=== PATIENT | male | born 1955 | race Caucasian/White ===

== ENCOUNTER → 2016-08-17 | Outpatient (CLI) | payer BC, MEDICAID ==
[~2016-08-17] MED LIST: ASPIRIN81 M2 PO; BREO ELLIPTA 21 EACH; INCRUSE ELLI62.5 MCG INH; IPRAT-ALBUT 0.5-3 ML INH; LIDODERM1 EACH TOP; MULTIPLE VITAM1 EAC1 PO
--- NOTE | ~2016-08-17 | PFT ---
[id number] [facility]. [place], [place] [address] [id number] O MR#: [id number] NAME: ROMULO JIMENEZ ROOM: SEX: Dwayne STUDY DATE/TIME: 08/19/2016 : 1955 AGE: 61 STUDY DESCRIPTION: Attending Physician: Damon Jay M.D. Referring Physician: Damon Jay M.D. Primary Care Physician: No Primary Care Physician PULMONARY DIAGNOSTIC REPORT EXAM Pulmonary function test. FINDINGS Spirometry reveals a moderate obstructive defect with an FEV1 of 2.09 L, 54% of predicted. There is no significant response to bronchodilators. Flow volume loop is consistent with an obstructive defect. Lung volumes reveal air trapping. Diffusion capacity is severely reduced. Changes are consistent with emphysema. Dictated by... Prince Sheffield M.D. MARCELINA/janice TD: 08/19/2016 09:47 JOB #: [id number] PULMONARY DIAGNOSTIC REPORT Page 1 of 1
[2016-08-17 10:29] LABS: ARTERIAL BLD GAS O2 SATURATION 97.1 % (90.0-100.0); ARTERIAL BLOOD GAS ALLEN TEST NORMAL; ARTERIAL BLOOD GAS ART SITE LEFT BRACHIAL; ARTERIAL BLOOD GAS CARBOXY HB 0.6 %sat (0.0-9.0); ARTERIAL BLOOD GAS HCO3 27.5 mmol/L; ARTERIAL BLOOD GAS MET HB 0.9 %sat (0.0-2.0); ARTERIAL BLOOD GAS PCO2 41.8 mmHg (35.0-45.0); ARTERIAL BLOOD GAS PO2 82.1 mmHg (80.0-100); ARTERIAL BLOOD GAS pH 7.427 (7.350-7.450); ARTERIAL DRAW? YES
== END | disposition home or self-care (01) ==
LOC: CRC 09:45
PROVIDERS: Surgery
DX: R91.8 Other nonspecific abnormal finding of lung field (principal)
CPT/HCPCS: 36600; 82803; 94060; 94726; 94729

== ENCOUNTER → 2016-08-25 | Day surgery (SDC) | payer BC, MEDICAID ==
--- NOTE | ~2016-08-25 | OR ---
Unit #: [id number] #: [id number] Patient: ROMULO JIMENEZ [id number] [address] [place], [place] [address] [id number] O MR#: [id number] NAME: ROMULO JIMENEZ ROOM: Date of Procedure: 08/25/2016 Admission Date: 08/25/2016 Surgeon: Damon Jay M.D. : 1955 Attending Physician: Damon Jay M.D. Referring Physician: Damon Jay M.D. OPERATIVE REPORT PREOPERATIVE DIAGNOSES Right upper lobe mass; left upper lobe nodule. POSTOPERATIVE DIAGNOSES Right upper lobe mass; left upper lobe nodule. PROCEDURE PERFORMED Flexible fiberoptic bronchoscopy with brushings obtained from the left upper lobe nodule under fluoroscopic control, with brushings and biopsies obtained from the right upper lobe mass under fluoroscopic control and with bronchial washings being collected. ANESTHESIA MAC. ESTIMATED BLOOD LOSS Minimal. COMPLICATIONS None. DESCRIPTION OF PROCEDURE The patient was taken to the endoscopy suite and left on a stretcher in a supine position. After appropriate monitoring lines had been placed, IV sedation was given per the Anesthesia Department. Anesthesia of the posterior pharynx was obtained using Hurricaine spray. The flexible bronchoscope was then passed orally per a bite block into the posterior pharynx. The vocal cords were visualized and found to be without lesions and both moved well with phonation. Anesthesia of the cords was obtained by injecting 2% Xylocaine per the scope. The scope was passed through the cords into the trachea. 1% Xylocaine was injected per the scope to anesthetize the tracheobronchial tree. The entire length of trachea was visualized and found to be normal. The stan was sharp. The right upper lobe, right middle lobe, and right lower lobe were all examined to their subsegmental bronchi level with no endobronchial masses being seen. There was noted to be some mild whitish secretions present, which were suctioned free. The left mainstem bronchus was normal. The left upper lobe and left lower lobe were both examined to their subsegmental bronchi level and found to be within normal limits with no endobronchial masses being seen. There was noted to be some mild whitish secretions on this side, which were irrigated and suctioned free. Attention was first turned to the left upper lobe. Under fluoroscopic control, brushings were obtained from the Unit #: [id number] #: [id number] Patient: ROMULO JIMENEZ small left upper lobe nodule. After this was completed, attention was turned to the right upper lobe. Under fluoroscopic control, brushings and biopsies were obtained from the right upper lobe mass and sent to Pathology. Washings were then collected and sent for cytology as well as cultures. After adequate hemostasis had been ensured, the bronchoscope was removed. Estimated blood loss in the procedure was minimal. The patient tolerated the procedure well and left the endoscopy suite in satisfactory condition. Dictated by... Daren Ovalles/oliva TD: 08/26/2016 06:31 JOB #: [id number] OPERATIVE REPORT Page 1 of 1 X Damon Jay MD X PROCEDURE OPERATIVE NOTE
--- NOTE | ~2016-08-25 | OR ---
Unit #: [id number] #: [id number] Patient: ROMULO JIMENEZ [id number] [address] [place], [place] [address] [id number] O MR#: [id number] NAME: ROMULO JIMENEZ ROOM: Date of Procedure: 08/25/2016 Admission Date: 08/25/2016 Surgeon: Damon Jay M.D. : 1955 Attending Physician: Damon Jay M.D. Referring Physician: Damon Jay M.D. Primary Care Physician: Primary Care Physician No OPERATIVE REPORT PREOPERATIVE DIAGNOSES Right upper lobe mass; left upper lobe nodule. POSTOPERATIVE DIAGNOSES Right upper lobe mass; left upper lobe nodule. PROCEDURE PERFORMED Flexible fiberoptic bronchoscopy with brushings obtained from the left upper lobe nodule under fluoroscopic control, with brushings and biopsies obtained from the right upper lobe mass under fluoroscopic control, and with bronchial washings being collected. ANESTHESIA MAC. ESTIMATED BLOOD LOSS Minimal. COMPLICATIONS None. DESCRIPTION OF PROCEDURE The patient was taken to the endoscopy suite and left on a stretcher in a supine position. After appropriate monitoring lines had been placed, IV sedation was given per the Anesthesia Department. Anesthesia of the posterior pharynx was obtained using Hurricaine spray. After adequate anesthesia had been obtained in this fashion, the flexible bronchoscope was passed orally per a bite block into the posterior pharynx. The vocal cords were visualized and found to be without lesions and both moved well with phonation. Anesthesia of the cords was obtained by injecting 2% Xylocaine per the scope. The scope was passed through the cords into the trachea. 1% Xylocaine was injected per the scope to anesthetize the tracheobronchial tree. The entire length of trachea was visualized and found to be within normal limits. The stan was sharp. The right upper lobe, right middle lobe, and right lower lobe were all examined to their subsegmental bronchi level with some mild whitish secretions present, which were irrigated and suctioned free. There were no endobronchial masses seen and no significant erythema noted of the mucosa. The left mainstem bronchus was normal. The left upper lobe and left lower lobe were both examined to their subsegmental bronchi level with the findings of some mild whitish secretions, which were irrigated and suctioned free. There were no endobronchial masses seen and no significant erythema of the Unit #: [id number] #: [id number] Patient: ROMULO JIMENEZ. Under fluoroscopic control, brushings were obtained from the left upper lobe nodule and sent to Pathology. Attention was then turned to the right upper lobe. Under fluoroscopic control, brushings and biopsies were obtained from the right upper lobe mass. Following this, bronchial washings were collected and sent for cytology as well as cultures. After adequate hemostasis had been ensured, the bronchoscope was removed. There was only minimal blood loss during the procedure. The patient tolerated the procedure well and left the endoscopy suite in satisfactory condition. Dictated by... Daren Ovalles/oliva TD: 08/26/2016 07:50 JOB #: [id number] OPERATIVE REPORT Page 1 of 1 X Damon Jay MD X PROCEDURE OPERATIVE NOTE
== END | disposition home or self-care (01) ==
LOC: COPS 07:46
PROVIDERS: Surgery
DX: J18.9 Pneumonia, unspecified organism (principal); I25.2 Old myocardial infarction; J43.9 Emphysema, unspecified; Z87.891 Personal history of nicotine dependence; Z86.010 Personal history of colon polyps; Z87.09 Personal history of other diseases of the respiratory system; Z80.3 Family history of malignant neoplasm of breast; Z79.82 Long term (current) use of aspirin; Z79.51 Long term (current) use of inhaled steroids; Z79.899 Other long term (current) drug therapy; Z89.021 Acquired absence of right finger(s); Z90.49 Acquired absence of other specified parts of digestive tract; Z98.890 Other specified postprocedural states
CPT/HCPCS: 76000; 87070; 87102; 87116; 87205; 87206; 88104; 88108; 88305; J0171; J2250

== ENCOUNTER → 2016-09-16 | Outpatient (CLI) | payer BC, MEDICAID ==
--- NOTE | ~2016-09-16 | CT57 ---
[facility] A Service of [facility] & [facility] RADIOLOGY TEXT RESULTS PATIENT: ROMULO JIMENEZ LOCATION: [facility] : 55 UNIT #: [id number] AGE: [address]: Damon Jay MD SEX: M ORDER DR: [id number] [facility] [address] [facility]. [place], [place] [address] [id number] O MR#: [id number] Acc #: [id number] NAME: ROMULO JIMENEZ : 1955 SEX: M STUDY DATE/TIME: 09/16/2016 8:52 UNIT: [facility] ROOM: STUDY DESCRIPTION: CT Chest Wo Cont Attending Physician: Damon Jay M.D. Referring Physician: Damon Jay M.D. Ordering Physician: Ronaldo Alvarez M.D. Primary Care Physician: Generic Doctor Not In System MEDICAL IMAGING REPORT This report is preliminary unless electronic signature is present EXAM Chest CT, without contrast. HISTORY Bilateral lung masses. The patient presents for potential biopsy of the right mass. COMPARISON Comparison examination from 07/14/2016 and 03/25/2016. TECHNIQUE This CT exam was performed with one or more of the following radiation dose reduction techniques: automatic exposure control, adjustment of mA and/or kV according to patient size, and iterative reconstruction. FINDINGS The biopsy procedure explained to the patient including risks, benefits and complications. Informed consent was obtained. The pre biopsy scan of the chest again demonstrates the two upper lobe lesions. Over the past 3 examinations, the right upper lobe lesion has progressively decreased in size. On the current examination the upper component of mass when measured at the same spot as on the previous examination measures 3.3 x 1.1 cm compared with 3.4 x 1.3 cm on the previous scan. The more inferior component of the mass measures 2.1 x 1.4 cm compared with 2.4 x 1.4 cm on the previous scan. None of the components appear larger or thicker than on the previous examination. The left upper lobe mass that had more of a ground-glass density in the previous examination is also again noted. Overall, it is less dense than on the previous examination with a diameter of 1.4 cm compared with 1.5 cm. This also overall shows improvement since the previous scan. After telephone consultation with Dr. Jay, it was elected to defer the biopsy for the time being and follow these lesions with serial CT scanning. Findings were relayed to the patient. [facility] A Service of [facility] RADIOLOGY TEXT RESULTS PATIENT: ROMULO JIMENEZ LOCATION: [facility] #: [id number] : 55 UNIT #: [id number] AGE: [address]: Damon Jay MD SEX: M ORDER DR: IMPRESSION The followup CT scan shows slight decrease in size of both upper lung field masses since the previous examination with no new or enlarging masses seen. Given the decrease in size since the previous scan percutaneous biopsy was deferred. Dictated by... Ronaldo Alvarez M.D. THIS IS AN ELECTRONICALLY VERIFIED REPORT Ronaldo Alvarez M.D. at 09/17/2016 6:47 AM MARCI/danilo TD: 09/16/2016 18:12 JOB #: [id number] MEDICAL IMAGING REPORT Page 1 of 1 COPY
[2016-09-16 07:10] LABS: HEMATOCRIT 46.8 % (38.0-50.0); HEMOGLOBIN 15.4 gm/dL (13.0-16.0); MEAN CELL VOLUME 97.6 FL (83-96); MEAN CORPUSCULAR HEMOGLOBIN 32.1 PG (28-34); MEAN CORPUSCULAR HGB CONC 32.9 g/dL (30-36); MEAN PLATELET VOLUME 6.6 FL (6.5-11.5); RED BLOOD COUNT 4.8 X10e (3.90-5.60); RED CELL DISTRIBUTION WIDTH 13.8 % (11.0-15.5); WHITE BLOOD COUNT 9.4 X10e3 (4.0-10.5)
[2016-09-16 07:24] LABS: INR 0.9; PARTIAL THROMBOPLASTIN TIME 28.5 SECONDS (23.5-31.3); PROTHROMBIN TIME (PATIENT) 9.8 SECONDS (10.0-11.7)
== END | disposition home or self-care (01) ==
LOC: CIVR 06:40
PROVIDERS: Surgery
DX: R91.8 Other nonspecific abnormal finding of lung field (principal)
CPT/HCPCS: 36415; 71250; 85027; 85610; 85730; J2250; J3010